=== PATIENT | female | born 1970 | race Caucasian/White ===

== ENCOUNTER 2016-03-31 18:14 | Emergency (ER) | payer OTHER ==
--- NOTE | 2016-03-31 18:47 | DIAGNOSTIC IMAGING REPORT ---
PROCEDURE: XR CHEST 2 VIEW INDICATION: COUGH TECHNIQUE: PA and lateral views. COMPARISON: None. FINDINGS: Lungs are clear. Heart and mediastinum are normal. Thorax is normal. IMPRESSION: 1. Negative chest.
--- NOTE | 2016-03-31 21:07 | ED CLINICAL REPORT ---
Clinical Report - Physicians/Mid Levels [facility] [address] [place] [address] 03/31/2016 18:15 Patient: MARY WILLARD Time Seen: 18:32 Mar 31 2016. Arrived- By private vehicle. Historian- patient. HISTORY OF PRESENT ILLNESS Chief Complaint: headache/ arthalgia. This started just prior to arrival and is still present. No weight loss, headache or muscle aches. Denies sleep problem. (For the last 2 weeks patient reports nausea, chills, arthralgias weakness, weight loss. Denies any foreign travel. Reports over the last day has had a posterior retro-orbital right-sided headache, which is common for her.). REVIEW OF SYSTEMS No fever, sore throat, sinus drainage, cough or difficulty breathing. No nausea, vomiting, diarrhea, chills or difficulty with urination. No skin rash or calf pain. All systems otherwise negative, except as recorded above. SOCIAL HISTORY Smoker- current status unknown. No alcohol use or drug use. ADDITIONAL NOTES The nursing notes have been reviewed. PHYSICAL EXAM Vital Signs: 03/31/2016 18:25 BP: 138/77. HR: 99. RR: 18. O2 saturation: 98%. Temp: 98.2 F. Appearance: Alert. ENT: Nose normal. Pharynx normal. Neck: Normal inspection. CVS: Normal heart rate and rhythm. Heart sounds normal. Rhythm normal. No extra heart sounds. Respiratory: No respiratory distress. Breath sounds normal. No decreased air movement. Abdomen: No visible injury. Soft. Bowel sounds normal. No abdominal tenderness. LABS, X-RAYS, AND EKG Chest X-ray: (IMPRESSION: 1. Negative chest. Electronically Final signed by:Mono Reddy MD 03/31/2016 6:42:57 PM). Laboratory Tests: UA-Culture if indicated: (IMELDA: 03/31/2016 20:40) ( MsgRcvd 03/31/2016 20:55) Final results Test Result Flag Units (Reference) URINE COLOR YELLOW URINE APPEARANCE CLEAR URINE GLUCOSE NEGATIVE (NEGATIVE) URINE BILIRUBIN NEGATIVE (NEGATIVE) URINE KETONE NEGATIVE (NEGATIVE) URINE SPECIFIC GRAVITY 1.010 (1.010-1.030) URINE PH 6.5 (5.0-8.0) URINE PROTEIN NEGATIVE (NEGATIVE) URINE UROBILINOGEN 0.2 EU/dL (0.2-1.0) URINE NITRITE NEGATIVE (NEGATIVE) URINE BLOOD NEGATIVE (NEGATIVE) URINE LEUK ESTERASE NEGATIVE (NEGATIVE) URINE RBC 0-1 rbc/hpf (0-1) URINE WBC 1-3 wbc/hpf (0-1) URINE EPITHELIAL CELLS 3-5 EPI/hpf (0-5) URINE BACTERIA TRACE (<1+) (NONE SEEN) URINE COMMENT CULT NOT INDICATED MUCUS 1+URINE CULTURES ARE SET-UP BASED ON THE FOLLOWING CRITERIA:POSITIVE NITRITEPOSITIVE LEUKOCYTE ESTERASEGREATER THAN 10 WHITE BLOOD CELLSMODERATE (2+) OR GREATER BACTERIA CBC w Diff: (IMELDA: 03/31/2016 19:00) ( [facility] 03/31/2016 19:21) Final results Test Result Flag Units (Reference) WHITE BLOOD COUNT 6.9 K/uL (4.5-11.5) RED BLOOD COUNT 4.27 M/uL (4.00-5.20) HEMOGLOBIN 13.2 gm/dL (12.0-16.0) HEMATOCRIT 40.1 % (36.0-46.0) MEAN CELL VOLUME 94 fL (80-100) MEAN CORPUSCULAR HGB 31 pg (26-34) MEAN CORPUSCULAR HGB CONC 33 g/dL (31-37) RED CELL DISTRIBUTION WIDTH 13.7 % (11.6-14.8) PLATELET COUNT 287 K/uL (150-400) NEUTROPHIL % 53.5 % (50-75) LYMPH % 37.6 % (25-40) MONO % 6.0 % (3-14) EOSINOPHIL % 1.7 % (0-4) BASOPHIL % 1.2 % (0-2) CMP: (IMELDA: 03/31/2016 19:00) ( [facility] 03/31/2016 19:46) Final results Test Result Flag Units (Reference) GLUCOSE 101 mg/dL (70-110) BUN 23 H mg/dL (7-18) CREATININE 0.9 mg/dL (0.6-1.3) Estimated GFR >60 mL/min Estimated GFR- >60 mL/min Note: Persistent reduction over 3 months in eGFR<60 mL/min/1.73 m2 defines CKD. Patients with eGFR values>=60 mL/min/1.73 m2 may also have CKD if evidence ofpersistent proteinuria. Additional information may be foundat www.kidney.org. SODIUM 142 mmol/L (136-145) POTASSIUM 3.7 mmol/L (3.5-5.1) CHLORIDE 103 mmol/L (98-107) CARBON DIOXIDE 25 mmol/L (21-32) CALCIUM 9.4 mg/dL (8.5-10.1) TOTAL PROTEIN 8.1 g/dL (6.4-8.2) ALBUMIN 4.3 g/dL (3.3-5.0) BILIRUBIN, TOTAL 0.3 mg/dL (0.0-1.0) ALKALINE PHOSPHATASE 87 U/L (46-116) AST (SGOT) 45 H U/L (15-37) ALT (SGPT) 78 U/L (12-78) . PROGRESS AND PROCEDURES Course of Care: patient here in the ER with her usual migraines, likely exacerbated by recent illness, likely influenza-like illness, harvest patient has had symptoms for 7-14 days, witha negative nonseptic workup here in the ER. Chest x-ray unremarkable in addition. Patient is stable, given IV hydration, IV Toradol, Vicodin prior to discharge, as well as IV Zofran 8 mg, as well as IV Benadryl. 03/31/2016 21:22 BP: 123/61. HR: 97. RR: 16. O2 saturation: 99%. Temp: 98.4 F. Pain level now: 05/29. Patient is stable. Symptoms better. Patient/family counseled. Differential Diagnosis: I considered sepsis, viral infection, flu syndrome, bacterial infection, Crohn's disease, lymphoma, drug fever, meningitis, peritonitis, intraabdominal abscess and viral gastroenteritis as a possible cause of fever in this patient. This is a partial list of diagnoses considered. Disposition: Discharged. CLINICAL IMPRESSION Acute, poorly controlled headache. Viral syndrome (Electronically signed by KorSharon reich P.A.-C 03/31/2016 21:37)
--- NOTE | 2016-03-31 21:07 | ED ORDER SUMMARY ---
..... Patient: MARY WILLARD OrderSheet [facility] VisitID: [id number] [address] [place] [address] 45y, F Registration Date/Time: 03/31/2016 ORDER SHEET Weight: 83.9 kg (stated) Allergies: D.H.E. 45, Doxycycline, Erythromycin, Penicillin, Phenergan, Reglan GENERAL ORDERS: Chest 2V Urgent (18:32 03/31/2016 EKoroleva P.A.-C) (Ack 18:33 LTapper) (18:48 MCampbell) CBC w Diff Urgent (18:32 03/31/2016 EKoroleva P.A.-C) (Ack 18:33 LTapper) (19:07 LWhalen R.N.) CMP Urgent (18:32 03/31/2016 EKoroleva P.A.-C) (Ack 18:33 LTapper) (19:07 LWhalen R.N.) UA-Culture if indicated Urgent (18:32 03/31/2016 EKoroleva P.A.-C) (Ack 18:33 LTapper) (20:53 AMcQuoid ER Tech1) MEDICATION ORDERS: Hydrocodone-APAP PO 5/325 mg (NOW, HIGH ALERT MEDICATION) (21:17 03/31/2016 EKoroleva P.A.-C) (21:21 HOShaughnessy R.N.) IV FLUIDS: IV NS : initial bolus 1000 mL (1000 mL/hr), then 1000 mL/hr for X1 (NOW); Eder (18:32 03/31/2016 EKoroleva P.A.-C) (19:07 LWhalen R.N.) Toradol IV 30 mg (NOW) (19:28 03/31/2016 EKoroleva P.A.-C) (19:36 HOShaughnessy R.N.) Benadryl IV 25 mg (NOW) (19:28 03/31/2016 EKoroleva P.A.-C) (19:36 HOShaughnessy R.N.) Zofran IV 8 mg (NOW) (19:28 03/31/2016 Naheed Vogt) (19:37 Maia Michele) Magnesium Sulfate IV 2 gm/50mL (NOW) (19:56 03/31/2016 Naheed Vogt) (20:06 Maia Michele) ORDER SHEET NOTES: [Electronically signed by Ruddy Prieto R.N. (21:24 03/31/2016)] [Electronically signed by Sharon Freeman P.A.-C (21:37 03/31/2016)] [Electronically locked/signed by Ruddy Prieto R.N. (21:24 03/31/2016)]
--- NOTE | 2016-03-31 21:07 | ED CLINICAL REPORT ---
Clinical Report - Physicians/Mid Levels [facility] [address] [place] [address] 03/31/2016 18:15 Patient: MARY WILLARD Time Seen: 18:32 Mar 31 2016. Arrived- By private vehicle. Historian- patient. HISTORY OF PRESENT ILLNESS Chief Complaint: headache/ arthalgia. This started just prior to arrival and is still present. No weight loss, headache or muscle aches. Denies sleep problem. (For the last 2 weeks patient reports nausea, chills, arthralgias weakness, weight loss. Denies any foreign travel. Reports over the last day has had a posterior retro-orbital right-sided headache, which is common for her.). REVIEW OF SYSTEMS No fever, sore throat, sinus drainage, cough or difficulty breathing. No nausea, vomiting, diarrhea, chills or difficulty with urination. No skin rash or calf pain. All systems otherwise negative, except as recorded above. SOCIAL HISTORY Smoker- current status unknown. No alcohol use or drug use. ADDITIONAL NOTES The nursing notes have been reviewed. PHYSICAL EXAM Vital Signs: 03/31/2016 18:25 BP: 138/77. HR: 99. RR: 18. O2 saturation: 98%. Temp: 98.2 F. Appearance: Alert. ENT: Nose normal. Pharynx normal. Neck: Normal inspection. CVS: Normal heart rate and rhythm. Heart sounds normal. Rhythm normal. No extra heart sounds. Respiratory: No respiratory distress. Breath sounds normal. No decreased air movement. Abdomen: No visible injury. Soft. Bowel sounds normal. No abdominal tenderness. LABS, X-RAYS, AND EKG Chest X-ray: (IMPRESSION: 1. Negative chest. Electronically Final signed by:Mono Reddy MD 03/31/2016 6:42:57 PM). Laboratory Tests: UA-Culture if indicated: (IMELDA: 03/31/2016 20:40) ( MsgRcvd 03/31/2016 20:55) Final results Test Result Flag Units (Reference) URINE COLOR YELLOW URINE APPEARANCE CLEAR URINE GLUCOSE NEGATIVE (NEGATIVE) URINE BILIRUBIN NEGATIVE (NEGATIVE) URINE KETONE NEGATIVE (NEGATIVE) URINE SPECIFIC GRAVITY 1.010 (1.010-1.030) URINE PH 6.5 (5.0-8.0) URINE PROTEIN NEGATIVE (NEGATIVE) URINE UROBILINOGEN 0.2 EU/dL (0.2-1.0) URINE NITRITE NEGATIVE (NEGATIVE) URINE BLOOD NEGATIVE (NEGATIVE) URINE LEUK ESTERASE NEGATIVE (NEGATIVE) URINE RBC 0-1 rbc/hpf (0-1) URINE WBC 1-3 wbc/hpf (0-1) URINE EPITHELIAL CELLS 3-5 EPI/hpf (0-5) URINE BACTERIA TRACE (<1+) (NONE SEEN) URINE COMMENT CULT NOT INDICATED MUCUS 1+URINE CULTURES ARE SET-UP BASED ON THE FOLLOWING CRITERIA:POSITIVE NITRITEPOSITIVE LEUKOCYTE ESTERASEGREATER THAN 10 WHITE BLOOD CELLSMODERATE (2+) OR GREATER BACTERIA CBC w Diff: (IMELDA: 03/31/2016 19:00) ( [facility] 03/31/2016 19:21) Final results Test Result Flag Units (Reference) WHITE BLOOD COUNT 6.9 K/uL (4.5-11.5) RED BLOOD COUNT 4.27 M/uL (4.00-5.20) HEMOGLOBIN 13.2 gm/dL (12.0-16.0) HEMATOCRIT 40.1 % (36.0-46.0) MEAN CELL VOLUME 94 fL (80-100) MEAN CORPUSCULAR HGB 31 pg (26-34) MEAN CORPUSCULAR HGB CONC 33 g/dL (31-37) RED CELL DISTRIBUTION WIDTH 13.7 % (11.6-14.8) PLATELET COUNT 287 K/uL (150-400) NEUTROPHIL % 53.5 % (50-75) LYMPH % 37.6 % (25-40) MONO % 6.0 % (3-14) EOSINOPHIL % 1.7 % (0-4) BASOPHIL % 1.2 % (0-2) CMP: (IMELDA: 03/31/2016 19:00) ( [facility] 03/31/2016 19:46) Final results Test Result Flag Units (Reference) GLUCOSE 101 mg/dL (70-110) BUN 23 H mg/dL (7-18) CREATININE 0.9 mg/dL (0.6-1.3) Estimated GFR >60 mL/min Estimated GFR- >60 mL/min Note: Persistent reduction over 3 months in eGFR<60 mL/min/1.73 m2 defines CKD. Patients with eGFR values>=60 mL/min/1.73 m2 may also have CKD if evidence ofpersistent proteinuria. Additional information may be foundat www.kidney.org. SODIUM 142 mmol/L (136-145) POTASSIUM 3.7 mmol/L (3.5-5.1) CHLORIDE 103 mmol/L (98-107) CARBON DIOXIDE 25 mmol/L (21-32) CALCIUM 9.4 mg/dL (8.5-10.1) TOTAL PROTEIN 8.1 g/dL (6.4-8.2) ALBUMIN 4.3 g/dL (3.3-5.0) BILIRUBIN, TOTAL 0.3 mg/dL (0.0-1.0) ALKALINE PHOSPHATASE 87 U/L (46-116) AST (SGOT) 45 H U/L (15-37) ALT (SGPT) 78 U/L (12-78) . PROGRESS AND PROCEDURES Course of Care: patient here in the ER with her usual migraines, likely exacerbated by recent illness, likely influenza-like illness, harvest patient has had symptoms for 7-14 days, witha negative nonseptic workup here in the ER. Chest x-ray unremarkable in addition. Patient is stable, given IV hydration, IV Toradol, Vicodin prior to discharge, as well as IV Zofran 8 mg, as well as IV Benadryl. 03/31/2016 21:22 BP: 123/61. HR: 97. RR: 16. O2 saturation: 99%. Temp: 98.4 F. Pain level now: 05/29. Patient is stable. Symptoms better. Patient/family counseled. Differential Diagnosis: I considered sepsis, viral infection, flu syndrome, bacterial infection, Crohn's disease, lymphoma, drug fever, meningitis, peritonitis, intraabdominal abscess and viral gastroenteritis as a possible cause of fever in this patient. This is a partial list of diagnoses considered. Disposition: Discharged. CLINICAL IMPRESSION Acute, poorly controlled headache. Viral syndrome (Electronically signed by KorSharon reich P.A.-C 03/31/2016 21:37)
--- NOTE | 2016-03-31 21:07 | ED NURSING NOTES ---
Clinical Report - [facility] [address] [place] [address] 03/31/2016 18:15 Patient: MARY WILLARD TRIAGE Triage time 18:25 Mar 31 2016. Acuity: LEVEL 3. Chief Complaint: HEADACHE and MIGRAINE HEADACHE. SABRINA COMA SCORE: Sabrina Coma Scale: 15- eyes open spontaneously (4); best verbal response- oriented x 4 (5); best motor response- obeys commands (6). --18:32 Enoch Chamorro R.N. 18:25 03/31/16. BP: 138/77. HR: 99. RR: 18. O2 saturation: 98%. Temp: 98.2 F. --18:32 Enoch Chamorro R.N. Weight: 83.9 kg stated. Height/Length: 66 inches Per Patient. BMI: 29.9. --18:31 Enoch Chamorro R.N. Medications BuPROPion HBr Oral. Omeprazole Oral. Sertraline HCl Oral. Strattera Oral. Tinidazole Oral. --18:27 Enoch Chamorro R.N. Allergies D.H.E. 45. Doxycycline. Erythromycin. Penicillin. Phenergan. Reglan. --18:27 Enoch Chamorro R.N. History Arrived by private vehicle. Historian: patient. Accompanied by friend. Primary physician (). This started two nights ago migranine started. ( Patient has not been feeling well for two weeks now with nausea, body aches, and chills.). She has had nausea and weakness. No vomiting, numbness, fever or sinus pain. Treatment LOCK FITTER: Took Tylenol and ibuprofen. PAST MEDICAL HX: Headaches. No history of diabetes mellitus or hypertension. No history of head injury. Immunizations: up-to-date. ( Years ago. Patient said in menopause no periods currently.). SOCIAL HX: Light tobacco smoker (cigarette)- less than 1/2 a pack per day. No alcohol use or drug use. No recent travel. No known contact with a sick individual. SELF HARM ASSESSMENT: A self harm assessment was performed. The patient answered "no" to the question "Have you recently felt down, depressed, or hopeless?" and "Do you have thoughts of harming or killing yourself?". FALL RISK ASSESSMENT: Fall risk assessment completed. No fall risk identified. NUTRITIONAL RISK ASSESSMENT: The nutritional risk assessment revealed no deficiencies. FUNCTIONAL ASSESSMENT: Functional assessment: no impairments noted. LEARNING NEEDS ASSESSMENT: The learning needs assessment revealed no barriers. ABUSE ASSESSMENT: Abuse assessment: (yes) The patient was asked "Do you feel safe in your home?". SKIN INTEGRITY ASSESSMENT: Skin integrity risk assessment completed. No skin integrity risk identified. --18:32 Enoch Chamorro R.N. PROBLEMS: Tension-Type Headache. Substance Abuse. Headache. Immunizations. LNMP - Last Normal Menstrual Period. Migraine Headache. Chronic Headache. --18:28 Enoch Chamorro R.N. ADDITIONAL SURGERIES: . Tubal Ligation. --18:28 Enoch Chamorro R.N. Interventions ID and allergy band on patient. --18:32 Enoch Chamorro R.N. PHYSICAL ASSESSMENT Ambulatory to room. GENERAL / NEURO / PSYCH: Alert. Oriented X 4. Appears in no acute distress. Appears in distress. Speech within normal limits. HEENT: No facial asymmetry noted. Photophobia present. Pupils equal, round and reactive to light. RESPIRATORY: Respirations not labored. Breath sounds within normal limits. CVS: Capillary refill less than 2 seconds. GI / : The patient has had nausea. Abdomen soft and nontender. ( Last BM yesterday and normal). SKIN: Skin is warm and dry. --18:33 Enoch Chamorro R.N. NURSING PROGRESS NOTES The plan of care for this patient has been created. Pulse oximeter and NIBP monitor placed on patient. Patient gowned. Head of bed elevated (45). Reassurance given. Lights dimmed. Call light placed in reach. Side rails up x 1. Bed placed in lowest position. Brakes of bed on. --18:33 Enoch Chamorro R.N. 19:07 03/31/2016 Site #1 started via IV in the left wrist with an 20g angiocath, with aseptic technique and good blood return; two attempts. Blood drawn: rainbow set. Labeled in the presence of the patient and sent to the lab. Saline lock flushed with 10 mL saline. --19: Enoch Chamorro R.N. 19:03/31/2016 Started bag #1 1000 mL IV Fluids IV NS (Saline); at 999 mL/hr over 1 hour(s) via site #1 via dial-a-flow. Allergies verified and confirmed 5 rights. IV patency established. IV site checked: no pain, redness, or swelling. IV flushed thoroughly pre- and post-medication administration. --19: Enoch Chamorro R.N. 19:27 03/31/16. BP: 124/60 taken on the left arm, via an automated monitor, while lying. HR: 92. RR: 16. O2 saturation: 100% on room air. Pain level now: 09/28. --19:28 Ruddy Prieto R.N. Reassurance given. Reassessment after fluids administered. She is calm. GENERAL / NEURO / PSYCH: Alert. Oriented X 4. HEENT: Pupils equal, round and reactive to light. RESPIRATORY: No respiratory distress. SKIN: Skin is warm and dry. Skin color within normal limits. --19:28 Ruddy Prieto R.N. 19:36 03/31/2016 Toradol IVP 30 mg given over 2 minute(s) via site #1. Allergies verified and confirmed 5 rights. IV patency established. IV site checked: no pain, redness, or swelling. IV flushed thoroughly pre- and post-medication administration. IVP given by RN. --19:36 Ruddy Prieto R.N. 19:36 03/31/2016 Benadryl (DiphenhydrAMINE HCl) IVP 25 mg given over 2 minute(s) via site #1. Allergies verified, confirmed 5 rights and sedative warning given to the patient. IV patency established. IV site checked: no pain, redness, or swelling. IV flushed thoroughly pre- and post-medication administration. IVP given by RN. --19:36 Ruddy Prieto R.N. 19:37 03/31/2016 Zofran (Ondansetron HCl) IVP 8 mg given over 2 minute(s) via site #1. Allergies verified and confirmed 5 rights. IV patency established. IV site checked: no pain, redness, or swelling. IV flushed thoroughly pre- and post-medication administration. IVP given by RN. --19:37 Ruddy Prieto R.N. 20:06 03/31/2016 Magnesium Sulfate (Magnesium Sulfate in D5W) IVP 2 gm given over 60 minute(s) via site #1. Allergies verified and confirmed 5 rights. IV patency established. IV site checked: no pain, redness, or swelling. IV flushed thoroughly pre- and post-medication administration. IVP given by RN. --20:06 Ruddy Prieto R.N. 20:37 03/31/16. BP: 125/65. HR: 98. RR: 16. O2 saturation: 100%. Temp: 98.2 F. --20:37 Ruddy Prieto R.N. Checked patient name and birthdate: patient confirmed. Instructions provided to collect clean catch urine and patient verbalized understanding. Clean catch urine collected. GENERAL / NEURO / PSYCH: Alert. Oriented X 4. HEENT: Pupils equal, round and reactive to light. RESPIRATORY: No respiratory distress. SKIN: Skin is warm and dry. Skin color within normal limits. --20:37 Ruddy Prieto R.N. 21:21 03/31/2016 Hydrocodone-APAP (Hydrocodone-Acetaminophen) PO 5/325 mg Tablets 1 tab given. Allergies verified, confirmed 5 rights and sedative warning given to the patient. --21:21 Ruddy Prieto R.N. DISPOSITION / DISCHARGE 21:22 03/31/2016 Site #1 removed upon discharge. Pressure dressing applied. --21:22 Ruddy Prieto R.N. 21:23 03/31/2016 IV Fluids IV NS Discontinued: bag #1 infused upon discharge. Total amount infused: 1000 mL. IV patency established. IV site checked: no pain, redness, or swelling. IV flushed thoroughly. --21:23 Ruddy Prieto R.N. Condition at departure: improved. The goals identified in the patient's plan of care were met. No learning barriers present. Discharge instructions provided and reviewed with the patient. Reviewed medication(s). Reviewed referral to a primary care physician. Reviewed clear liquid diet. The patient has no activity restrictions. The patient was discharged home and accompanied by ultimate hoops referee. She left the Emergency Department ambulatory and via private vehicle. House Cleaner Supervisor driving. FALL RISK ASSESSMENT: Fall risk assessment completed. No fall risk identified. --21:23 Ruddy Prieto R.N. 21:22 03/31/16. BP: 123/61. HR: 97. RR: 16. O2 saturation: 99%. Temp: 98.4 F (oral). Pain level now: 05/29. --21:23 Ruddy Prieto R.N. Departure time: 2122 PM. --21:24 Ruddy Prieto R.N. Locked/Released at 03/31/2016 21:24 by Ruddy Prieto R.N.
--- NOTE | 2016-03-31 21:07 | ED ORDER SUMMARY ---
..... Patient: MARY WILLARD OrderSheet [facility] VisitID: [id number] [address] [place] [address] 45y, F Registration Date/Time: 03/31/2016 ORDER SHEET Weight: 83.9 kg (stated) Allergies: D.H.E. 45, Doxycycline, Erythromycin, Penicillin, Phenergan, Reglan GENERAL ORDERS: Chest 2V Urgent (18:32 03/31/2016 EKoroleva P.A.-C) (Ack 18:33 LTapper) (18:48 MCampbell) CBC w Diff Urgent (18:32 03/31/2016 EKoroleva P.A.-C) (Ack 18:33 LTapper) (19:07 LWhalen R.N.) CMP Urgent (18:32 03/31/2016 EKoroleva P.A.-C) (Ack 18:33 LTapper) (19:07 LWhalen R.N.) UA-Culture if indicated Urgent (18:32 03/31/2016 EKoroleva P.A.-C) (Ack 18:33 LTapper) (20:53 AMcQuoid ER Tech1) MEDICATION ORDERS: Hydrocodone-APAP PO 5/325 mg (NOW, HIGH ALERT MEDICATION) (21:17 03/31/2016 EKoroleva P.A.-C) (21:21 HOShaughnessy R.N.) IV FLUIDS: IV NS : initial bolus 1000 mL (1000 mL/hr), then 1000 mL/hr for X1 (NOW); Eder (18:32 03/31/2016 EKoroleva P.A.-C) (19:07 LWhalen R.N.) Toradol IV 30 mg (NOW) (19:28 03/31/2016 EKoroleva P.A.-C) (19:36 HOShaughnessy R.N.) Benadryl IV 25 mg (NOW) (19:28 03/31/2016 EKoroleva P.A.-C) (19:36 HOShaughnessy R.N.) Zofran IV 8 mg (NOW) (19:28 03/31/2016 Naheed Vogt) (19:37 Maia Michele) Magnesium Sulfate IV 2 gm/50mL (NOW) (19:56 03/31/2016 Naheed Vogt) (20:06 Maia Michele) ORDER SHEET NOTES: [Electronically signed by Ruddy Prieto R.N. (21:24 03/31/2016)] [Electronically signed by Sharon Freeman P.A.-C (21:37 03/31/2016)] [Electronically locked/signed by Ruddy Prieto R.N. (21:24 03/31/2016)]
--- NOTE | 2016-03-31 21:37 | ED MAR SUMMARY ---
..... Medication Administration Record [facility] [address] [place] [address] Patient: MARY WILLARD Visit ID: [id number] 45y, F Weight: 83.9 kg Height/Length: 66 in BMI: 29.9 ALLERGIES: D.H.E. 45, Doxycycline, Erythromycin, Penicillin, Phenergan, Reglan Start 19:07 03/31/2016 Enoch Chamorro R.N., Stop 21:23 03/31/2016 Ruddy Prieto R.N. Medication Administered: IV NS (SALINE), Dose: IV Fluids over 1 hour(s), Rate: 999 mL/hr, Dispensed: 1000 mL bag, Site: #1 left wrist. Medication Ordered: IV NS : initial bolus 1000 mL (1000 mL/hr), then 1000 mL/hr for X1 (NOW); Eder. Given 19:36 03/31/2016 Ruddy Prieto R.N. Medication Administered: TORADOL [IVP], Dose: 30 mg IVP over 2 minute(s), Site: #1 left wrist. Medication Ordered: Toradol IV 30 mg (NOW). Given 19:36 03/31/2016 Ruddy Prieto R.N. Medication Administered: BENADRYL [IVP] (DIPHENHYDRAMINE HCL), Dose: 25 mg IVP over 2 minute(s), Site: #1 left wrist. Medication Ordered: Benadryl IV 25 mg (NOW). Given 19:37 03/31/2016 Ruddy Prieto R.N. Medication Administered: ZOFRAN [IVP] (ONDANSETRON HCL), Dose: 8 mg IVP over 2 minute(s), Site: #1 left wrist. Medication Ordered: Zofran IV 8 mg (NOW). Given 20:06 03/31/2016 Ruddy Prieto R.N. Medication Administered: MAGNESIUM SULFATE [IVP] (MAGNESIUM SULFATE IN D5W), Dose: 2 gm IVP over 60 minute(s), Site: #1 left wrist. Medication Ordered: Magnesium Sulfate IV 2 gm/50mL (NOW). Given 21:03/31/2016 Ruddy Prieto R.N. Medication Administered: HYDROCODONE-APAP [PO] (HYDROCODONE-ACETAMINOPHEN), Dose: 1 tab 5/325 mg Tablets PO. Medication Ordered: Hydrocodone-APAP PO 5/325 mg (NOW, HIGH ALERT MEDICATION).
--- NOTE | 2016-03-31 21:37 | ED DISCHARGE INSTRUCTIONS ---
Patient: MARY WILLARD General Instructions [facility] VisitID: [id number] [address] [place] [address] 45y, F Registration Date/Time: 03/31/2016 Acute, poorly controlled headache. Viral syndrome ADDITIONAL INFORMATION Migraine Headache Migraine headaches are related to changes in blood flow to the brain. This causes throbbing or constant pain on one or both sides of the head. The pain may last from a few hours to several days. There is usually nausea, vomiting, sensitivity to light and sound, and blurred vision. A migraine attack may be triggered by emotional stress, hormone changes during the menstrual cycle, oral contraceptives, alcohol use, certain foods containing tyramine, eye strain, weather changes, missing meals, or too little or too much sleep. Home Care For This Headache: 1) If you were given pain medicine for this headache, do not drive yourself home . Arrange for a ride, instead. When you get home, try to sleep. You should feel much better when you wake up. 2) Migraine headaches may improve with an ice pack on the forehead or at the base of the skull. Heat to the back of your neck may relieve any neck spasm. 3) Drink only clear liquids or eat a very light diet to avoid nausea/vomiting until symptoms improve. Preventing Future Headaches: 1) Pay attention to those factors that seem to trigger your headache. Try to avoid them when you can. If you have frequent headaches, it is useful to keep a diary of what you were doing, feeling or eating in the hours before each attack. Show this to your doctor to help find the cause of your headaches. a) If you feel that stress is a factor in your headaches, look at the sources of stress in your life. Find ways to release the build-up of those stresses by using regular exercise, relaxation methods (yoga, meditation), bio-feedback or simply taking time-out for yourself. For more information about this, consult your doctor or go to a local bookstore and review books and tapes on this subject. b) Tyramine is a substance present in the following foods : chocolate, yogurt, all cheeses except cottage cheese and cream cheese. smoked or pickled fish and meat (including cottrell, caviar, bologna, pepperoni, salami), liver, avocados, bananas, figs, raisins, and red wine. Be aware that these foods may trigger a migraine in some persons. Try taking these foods out of your diet for 1-2 months to see if this reduces headache frequency. Treating Future Attacks: 1) At the first sign of a headache, take time out if possible. Find a quiet, dark, comfortable place to sit or lie down. Let yourself relax or sleep. 2) An ice pack on the forehead or area of greatest pain may help. If you are having muscle spasm and tightness of the neck, a heating pad and massage to this area may be helpful. 3) If you have been prescribed a medicine to stop a migraine headache, use this at the very first warning sign of the headache (aura or initial pain) for best results. Follow Up with your doctor if the headache is not better within the next 24 hours. If you have frequent headaches you should discuss a treatment plan with your primary care doctor. Ask if you can have medicine to take at home the next time you get a bad headache. Poorly controlled chronic headaches may require a referral to a neurologist (headache specialist). Get Prompt Medical Attention if any of the following occur: Your head pain gets worse, or does not improve within 24 hours Repeated vomiting (cant keep liquids down) Sinus or ear or throat pain (not already reported) Fever of 100.4 F (38 C) or higher, or as directed by your healthcare provider Stiff neck Extreme drowsiness, confusion or fainting Dizziness, vertigo (dizziness with spinning sensation) Weakness of an arm or leg or one side of the face Difficulty with speech or vision Headache [Unspecified] The cause of your headache today is not clear, but it does not appear to be the sign of any serious illness. Under stress, some people tense the muscles of their shoulder, neck and scalp without knowing it. If this condition lasts long enough, a TENSION HEADACHE can occur. A MIGRAINE HEADACHE is caused by changes in blood flow to the brain. A migraine attack may be triggered by emotional stress, hormone changes during the menstrual cycle, oral contraceptives, alcohol use, certain foods containing tyramine, eye strain, weather changes, missing meals, lack of sleep or oversleeping. Other causes of headache include a viral illness with high fever, head injury with concussion, sinus, ear or throat infection, dental pain and TMJ (jaw joint) pain. More serious but less common causes of headache include stroke, brain hemorrhage, brain tumor, meningitis and encephalitis. Home Care: If you were given pain medicine for this headache, do not drive yourself home. Arrange for a ride, instead. When you get home, try to sleep. You should feel much better when you wake up. Apply heat to the back of your neck to relieve neck muscle spasm. Migraine headaches may respond best to an ice pack on the forehead or at the base of the skull. If you are having nausea or vomiting, follow a light diet until your headache is relieved. If you have a migraine type headache, use sunglasses when in the daylight or around bright indoor lighting until symptoms improve. Bright glaring light can worsen this kind of headache. Follow Up with your doctor if the headache is not better within the next 24 hours. If you have frequent headaches you should discuss a treatment plan with your primary care doctor. By being aware of the earliest signs of headache, and starting treatment right away, you may be able to stop the pain yourself. Get Prompt Medical Attention if any of the following occur: Worsening of your head pain or no improvement within 24 hours Repeated vomiting (unable to keep liquids down) Fever of 100.4F (38C) or higher, or as directed by your healthcare provider Stiff neck Extreme drowsiness, confusion or fainting Dizziness, vertigo (dizziness with spinning sensation) Weakness of an arm or leg or one side of the face Difficulty with speech or vision Viral Syndrome (Adult) A viral illness may cause a number of symptoms. The symptoms depend on the part of the body that the virus affects. If it settles in the nose, throat, and lungs, it may cause cough, sore throat, congestion, and sometimes headache. If it settles in the stomach and intestinal tract, it may cause vomiting and diarrhea. Sometimes it causes vague symptoms like "aching all over," feeling tired, loss of appetite, or fever. A viral illness usually lasts1 to 2 weeks, but sometimes it lasts longer. In some cases, a more serious infection can look like a viral syndrome in the first few days of the illness. You may need anotherexam and additional teststo know the difference.Watch for the warning signs listed below. Home care Follow these guidelines for taking care of yourself at home: If symptoms are severe, rest at home for the first 2 to 3 days. Stay away from cigarette smoke - both your smoke and the smoke from others. You may useacetaminophen or ibuprofen for fever, muscle aching, and headache, unless another medicine was prescribed for this.If you have chronic liver or kidney disease or ever had a stomach ulcer or GI bleeding, talk with your doctor before using these medicinesNo one who is younger than 18 and ill with a fever should take aspirin. It may cause severe liver damage. Your appetite may be poor, so a light diet is fine. Avoid dehydration by drinking 8 to 12 8-ounce glasses of fluids each day. This may include water; orange juice; lemonade; apple, grape, and cranberry juice; clear fruit drinks; electrolyte replacement and sports drinks; and decaffeinated teas and coffee. If you have been diagnosed with a kidney disease, ask your doctor how much and what types of fluids you should drink to prevent dehydration. If you have kidney disease, drinking too much fluid can cause it build up in the your body and be dangerous to your health. Jeey-mzq-krpnwai remedies won't shorten the length of the illness but may be helpful forcough, sore throat; and nasal and sinus congestion. Don't use decongestants if you have high blood pressure. Follow-up care Follow up with your health care provider if you do not improve over the next week. When to seek medical care Get prompt medical attention if any of these occur: Cough with lots of colored sputum (mucus) or blood in your sputum Chest pain, shortness of breath, wheezing, or difficulty breathing Severe headache; face, neck, or ear pain Severe, constant pain in the lower right side of your belly (abdominal) Continued vomiting (cant keep liquids down) Frequent diarrhea (more than 5 times a day); blood (red or black color) or mucus in diarrhea Feeling weak, dizzy, or like you are going to faint Extreme thirst Fever of 100.4 F (38 C) oral or higher, not better with fever medication Convulsion You have been given the following additional information: Headache, Migraine (Classical) Headache, Unspecified Viral Syndrome (Adult) (Electronically signed by Sharon Freeman P.A.-C 03/31/2016 21:37)
--- NOTE | 2016-03-31 21:37 | ED MAR SUMMARY ---
..... Medication Administration Record Located Within [facility] [address] [facility] [place] [address] Patient: MARY WILLARD Visit ID: [id number] 45y, F Weight: 83.9 kg Height/Length: 66 in BMI: 29.9 ALLERGIES: D.H.E. 45, Doxycycline, Erythromycin, Penicillin, Phenergan, Reglan Start 19:07 03/31/2016 Enoch Chamorro R.N., Stop 21:23 03/31/2016 Ruddy Prieto R.N. Medication Administered: IV NS (SALINE), Dose: IV Fluids over 1 hour(s), Rate: 999 mL/hr, Dispensed: 1000 mL bag, Site: #1 left wrist. Medication Ordered: IV NS : initial bolus 1000 mL (1000 mL/hr), then 1000 mL/hr for X1 (NOW); Eder. Given 19:36 03/31/2016 Ruddy Prieto R.N. Medication Administered: TORADOL [IVP], Dose: 30 mg IVP over 2 minute(s), Site: #1 left wrist. Medication Ordered: Toradol IV 30 mg (NOW). Given 19:36 03/31/2016 Ruddy Prieto R.N. Medication Administered: BENADRYL [IVP] (DIPHENHYDRAMINE HCL), Dose: 25 mg IVP over 2 minute(s), Site: #1 left wrist. Medication Ordered: Benadryl IV 25 mg (NOW). Given 19:37 03/31/2016 Ruddy Prieto R.N. Medication Administered: ZOFRAN [IVP] (ONDANSETRON HCL), Dose: 8 mg IVP over 2 minute(s), Site: #1 left wrist. Medication Ordered: Zofran IV 8 mg (NOW). Given 20:06 03/31/2016 Ruddy Prieto R.N. Medication Administered: MAGNESIUM SULFATE [IVP] (MAGNESIUM SULFATE IN D5W), Dose: 2 gm IVP over 60 minute(s), Site: #1 left wrist. Medication Ordered: Magnesium Sulfate IV 2 gm/50mL (NOW). Given 21:03/31/2016 Ruddy Prieto R.N. Medication Administered: HYDROCODONE-APAP [PO] (HYDROCODONE-ACETAMINOPHEN), Dose: 1 tab 5/325 mg Tablets PO. Medication Ordered: Hydrocodone-APAP PO 5/325 mg (NOW, HIGH ALERT MEDICATION).
--- NOTE | 2016-03-31 21:37 | ED MED RECONCILIATION SUMMARY ---
Patient: MARY WILLARD Medication Reconciliation Report [facility] VisitID: [id number] [address] [place] [address] 45y, F Registration Date/Time: 03/31/2016 Weight: 83.9 kg Height/Length: 66 in. BMI: 29.9 ALLERGIES: D.H.E. 45, Doxycycline, Erythromycin, Penicillin, Phenergan, Reglan The patient's Home Medications are listed below: THE FOLLOWING MEDICATIONS NEED TO BE RECONCILED: BuPROPion HBr Oral Omeprazole Oral Sertraline HCl Oral Strattera Oral Tinidazole Oral The source(s) of the original Home Medication information: Not obtained. The following Medications were given to the patient in the Emergency Department: IV NS IV Fluids bolus 0, then 999 mL/hr, administered: 03/31/2016 7:07:00 PM Toradol [IVP] IVP 30 mg, administered: 03/31/2016 7:36:00 PM Benadryl [IVP] IVP 25 mg, administered: 03/31/2016 7:36:00 PM Zofran [IVP] IVP 8 mg, administered: 03/31/2016 7:37:00 PM Magnesium Sulfate [IVP] IVP 2 gm, administered: 03/31/2016 8:06:00 PM Hydrocodone-APAP [PO] PO 1 tab, administered: 03/31/2016 9:21:00 PM The following Medications were prescribed to the patient: None.
--- NOTE | 2016-03-31 21:37 | ED MED RECONCILIATION SUMMARY ---
Patient: MARY WILLARD Medication Reconciliation Report [facility] VisitID: [id number] [address] [place] [address] 45y, F Registration Date/Time: 03/31/2016 Weight: 83.9 kg Height/Length: 66 in. BMI: 29.9 ALLERGIES: D.H.E. 45, Doxycycline, Erythromycin, Penicillin, Phenergan, Reglan The patient's Home Medications are listed below: THE FOLLOWING MEDICATIONS NEED TO BE RECONCILED: BuPROPion HBr Oral Omeprazole Oral Sertraline HCl Oral Strattera Oral Tinidazole Oral The source(s) of the original Home Medication information: Not obtained. The following Medications were given to the patient in the Emergency Department: IV NS IV Fluids bolus 0, then 999 mL/hr, administered: 03/31/2016 7:07:00 PM Toradol [IVP] IVP 30 mg, administered: 03/31/2016 7:36:00 PM Benadryl [IVP] IVP 25 mg, administered: 03/31/2016 7:36:00 PM Zofran [IVP] IVP 8 mg, administered: 03/31/2016 7:37:00 PM Magnesium Sulfate [IVP] IVP 2 gm, administered: 03/31/2016 8:06:00 PM Hydrocodone-APAP [PO] PO 1 tab, administered: 03/31/2016 9:21:00 PM The following Medications were prescribed to the patient: None.
== END 2016-03-31 21:24 | disposition home or self-care (01) ==
LOC: ED SRH 18:14
DX: B34.9 Viral infection, unspecified (principal); R51 Headache; F17.210 Nicotine dependence, cigarettes, uncomplicated; Z88.1 Allergy status to other antibiotic agents; Z88.8 Allergy status to other drugs, medicaments and biological substances; Z88.0 Allergy status to penicillin
CPT/HCPCS: 90004; 90100; 95059

== ENCOUNTER 2016-06-25 18:30 | Emergency (ER) | payer OTHER ==
--- NOTE | 2016-06-25 21:25 | ED ORDER SUMMARY ---
..... Patient: MARY WILLARD OrderSheet VisitID: [id number] [address] [place] [address] 45y, F Registration Date/Time: 06/25/2016 ORDER SHEET Weight: 83.9 kg (stated) Allergies: D.H.E. 45, Doxycycline, Erythromycin, Penicillin, Phenergan, Reglan GENERAL ORDERS: MEDICATION ORDERS: IV FLUIDS: Dilaudid IV 1 mg (HIGH ALERT MEDICATION, NOW) (19:13 06/25/2016 Darin Jane) (Ack 19:15 HSoule) (19:42 HSoule) Benadryl IV 25 mg (NOW) (19:06/25/2016 Darin Jane) (Ack 19:15 HSoule) (19:42 HSoule) Zofran IV 4 mg (NOW) (19:06/25/2016 Darin Jane) (Ack 19:15 HSoule) (19:43 HSoule) Decadron IV 10 mg (NOW) (19:14 06/25/2016 Darin Jane) (Ack 19:15 HSoule) (19:43 HSoule) IV NS : initial bolus 1000 mL (1000 mL/hr), then none - for X1 (NOW) (19:14 06/25/2016 Darin Jane) (Ack 19:15 HSoule) (19:43 HSoule) Toradol IV 30 mg (NOW) (20:39 06/25/2016 Darin Jane) (Ack 21:01 JDeElena R.N.) (Ack 21:03 HSoule) (21:04 JDeElena R.N.) Dilaudid IV 1 mg (HIGH ALERT MEDICATION, NOW) (20:39 06/25/2016 Darin Jane) (Ack 21:01 JDeElena R.N.) (Ack 21:03 HSoule) (21:04 JDeElena R.N.) ORDER SHEET NOTES: [Electronically signed by Coni Gardner (00:51 06/26/2016)] [Electronically signed by Hugo Dubose Dr. (12:14 06/27/2016)] [Electronically locked/signed by Coni Gardner (00:51 06/26/2016)]
--- NOTE | 2016-06-25 21:25 | ED ORDER SUMMARY ---
..... Patient: MARY WILLARD OrderSheet [facility] VisitID: [id number] [address] [place] [address] 45y, F Registration Date/Time: 06/25/2016 ORDER SHEET Weight: 83.9 kg (stated) Allergies: D.H.E. 45, Doxycycline, Erythromycin, Penicillin, Phenergan, Reglan GENERAL ORDERS: MEDICATION ORDERS: IV FLUIDS: Dilaudid IV 1 mg (HIGH ALERT MEDICATION, NOW) (19:13 06/25/2016 Darin Jane) (Ack 19:15 HSoule) (19:42 HSoule) Benadryl IV 25 mg (NOW) (19:06/25/2016 Darin Jane) (Ack 19:15 HSoule) (19:42 HSoule) Zofran IV 4 mg (NOW) (19:06/25/2016 Darin Jane) (Ack 19:15 HSoule) (19:43 HSoule) Decadron IV 10 mg (NOW) (19:14 06/25/2016 Darin Jane) (Ack 19:15 HSoule) (19:43 HSoule) IV NS : initial bolus 1000 mL (1000 mL/hr), then none - for X1 (NOW) (19:14 06/25/2016 Darin Jane) (Ack 19:15 HSoule) (19:43 HSoule) Toradol IV 30 mg (NOW) (20:39 06/25/2016 Darin Jane) (Ack 21:01 JDeElena R.N.) (Ack 21:03 HSoule) (21:04 JDeElena R.N.) Dilaudid IV 1 mg (HIGH ALERT MEDICATION, NOW) (20:39 06/25/2016 Darin Jane) (Ack 21:01 JDeElena R.N.) (Ack 21:03 HSoule) (21:04 JDeElena R.N.) ORDER SHEET NOTES: [Electronically signed by Coni Gardner (00:51 06/26/2016)] [Electronically signed by Hugo Dubose Dr. (12:14 06/27/2016)] [Electronically locked/signed by Coni Gardner (00:51 06/26/2016)]
--- NOTE | 2016-06-25 21:25 | ED CLINICAL REPORT ---
Clinical Report - Physicians/Mid Levels [facility] [address] [place] [address] 06/25/2016 18:31 Patient: MARY WILLARD Time Seen: 190; initial patient contact. Arrived- By private vehicle. Historian- patient. HISTORY OF PRESENT ILLNESS Is still present and worsening. Chief Complaint: HEADACHE. This started yesterday. It was gradual in onset and has been constant but is not gone now. Patient was last known well (yesterday). Onset during rest. It is described as similar to previous headaches. Located in the left temporal region. No neck pain. Not located in the facial region. At its maximum, severity described as severe. When seen in the E.D., severity described as severe. Modifying factors: worsened by bright light and noise; (improved with IV medications). The patient has had photophobia and nausea. No preceding symptoms, blurred vision or weakness. No recent travel. Similar symptoms previously: Many times. Recent medical care: Not recently seen/assessed. REVIEW OF SYSTEMS No fever, chest pain, difficulty breathing or skin rash. All systems otherwise negative, except as recorded above. PAST HISTORY See nurses notes. Medications: TiZANidine HCl Oral 4 mg, daily. Montelukast Sodium Oral 10 mg, daily. Prevacid Oral, daily. BuPROPion HCl Oral 150 mg, 2x a day. Strattera Oral 80mg, daily. Sertraline HCl Oral 200mg, daily. Ibuprofen Oral, as needed. Tylenol Oral, as needed. Allergies: D.H.E. 45. Doxycycline. Erythromycin. Penicillin. Phenergan. Reglan. SOCIAL HISTORY Smoker- current status unknown. Occasional alcohol use. No drug use. No recent travel. Is a local resident. ADDITIONAL NOTES The nursing notes have been reviewed. PHYSICAL EXAM Vital Signs: 06/25/2016 18:41 BP: 139/90. HR: 102. RR: 16. O2 saturation: 98%. Temp: 98.2 F. Blood pressure normal. Oxygen saturation normal. Appearance: Alert. No acute distress. Eyes: Pupils equal, round and reactive to light. Eyes normal inspection. (no papilledema. Normal appearing retinal vasculature.). ENT: Ears normal. Nose normal. Pharynx normal. Neck: Normal inspection. Neck supple. No meningeal signs. CVS: Normal heart rate and rhythm. Heart sounds normal. Pulses normal. Respiratory: No respiratory distress. Breath sounds normal. Abdomen: Soft and nontender. No organomegaly. Skin: Skin warm and dry. Normal skin color. No rash. Normal skin turgor. Extremities: Extremities exhibit normal ROM. No lower extremity edema. Neuro: Oriented X 3. Alert. Mood/affect normal. Speech normal. Cranial nerves normal (as tested). No cerebellar findings. No motor deficit. No sensory deficit. Reflexes normal. PROGRESS AND PROCEDURES Course of Care: Patient is a pleasant 45-year-old female presenting for evaluation of headache. Patient as been evaluated for SAH, increased ICP, meningitis, and space occupying lesion. Patients exam and history are not consistent with these entities. Patient is agreeable to treatment for headache. Medications have been ordered after reviewing allergies and intolerances. Patient will be reevaluated after the medications have been given. patient with some allergies making it somewhat difficult to treat her migraine headache appropriately. Patient also states that in the migraine Cocktail she receives she normally gets magnesium sulfate as well as Dilaudid. I expressed my concern with these treatments and them being atypical. Recommended trial of medications withoutmagnesium sulfate or Dilaudid. Patient is agreeable to the oregoing of magnesium however insisted on Dilaudid. Medications and ordered. We'll reevaluate. Patient was reevaluated and found to be significantly improved after second dose of medications.. Patient reports being able to return home and follow up with doctor. Repeat examination continues to be benign. I discussed with the patient workup, diagnosis, home care, follow-up, and return precautions. All questions have been answered. The patient expressed understanding of these instructions and was agreeable to them. Do not feel patient needs to be admitted to the hospital or require further ED workup/evaluation. Disposition: Discharged. Condition: good. CLINICAL IMPRESSION 06/25/2016 21:05 BP: 142/88. HR: 94. RR: 16. O2 saturation: 97%. 06/25/2016 20:03 BP: 127/70. HR: 89. RR: 20. O2 saturation: 100%. Pain level now: 07/29. 06/25/2016 18:41 BP: 139/90. HR: 102. RR: 16. O2 saturation: 98%. Temp: 98.2 F. Acute headache (left temporal). Blood pressure normal. Oxygen saturation normal. INSTRUCTIONS Warnings: SEDATIVE MEDICATION: You were given sedative medication during your visit. Do not drive or operate dangerous machinery. GENERAL WARNINGS: Return or contact your physician immediately if your condition worsens or changes unexpectedly, if not improving as expected, or if other problems arise. SPECIFICALLY, return if you develop fever, vomiting, numbness, weakness, difficulty thinking, visual disturbances, fainting or extreme fatigue. Your Current Medications: CONTINUE TAKING THE FOLLOWING MEDICATIONS: BuPROPion HCl Oral : 150 mg 2x a day. Ibuprofen Oral : prn. Montelukast Sodium Oral : 10 mg daily. Prevacid Oral : daily. Sertraline HCl Oral : 200mg daily. Strattera Oral : 80mg daily. TiZANidine HCl Oral : 4 mg daily. Tylenol Oral : prn. Follow-up: Return to the emergency department as needed. Follow up with your doctor in three days. Reason for referral: recheck today's concerns. Summary of care provided to patient via paper. Screening today revealed the patient's blood pressure to be in the normal range. The patient should follow up with a primary care provider for blood pressure management. Understanding of the discharge instructions verbalized by patient. (Electronically signed by Hugo Dubose Dr. 06/27/2016 12:14)
--- NOTE | 2016-06-25 21:25 | ED NURSING NOTES ---
Clinical Report - Nurses [facility] [address] [place] [address] 06/25/2016 18:31 Patient: MARY WILLARD TRIAGE Triage time 18:41. Acuity: LEVEL 3. Chief Complaint: MIGRAINE HEADACHE. Alert. No acute distress. SEPSIS SCREEN: Sepsis Screen. Negative (no infection suspected/documented). SABRINA COMA SCORE: Sabrina Coma Scale: 15- eyes open spontaneously (4); best verbal response- oriented x 4 (5); best motor response- obeys commands (6). --18:46 Sharon Stephens R.N. 18:41 06/25/16. BP: 139/90. HR: 102. RR: 16. O2 saturation: 98%. Temp: 98.2 F. Pain level now 7/10. --18:46 Sharon Stephens R.N. Weight: 83.9 kg stated. Height/Length: 66 inches Per Patient. BMI: 29.9. --18:42 Sharon Stephens R.N. Medications Tylenol Oral, as needed. --18:44 Sharon Stephens R.N. Ibuprofen Oral, as needed. --18:44 Sahron Stephens R.N. Sertraline HCl Oral 200mg, daily. --18:44 Sharon Stephens R.N. Strattera Oral 80mg, daily. --18:44 Sharon Stephens R.N. BuPROPion HCl Oral 150 mg, 2x a day. --18:44 Sharon Stephens R.N. Prevacid Oral, daily. --18:45 Sharon Stephens R.N. Montelukast Sodium Oral 10 mg, daily. --18:45 Sharon Stephens R.N. TiZANidine HCl Oral 4 mg, daily. --18:45 Sharon Stephens R.N. Allergies D.H.E. 45. Doxycycline. Erythromycin. Penicillin. Phenergan. Reglan. --18:46 Sharon Stephens R.N. History Arrived by private vehicle. Historian: patient. Unaccompanied. Primary physician (Hayley Brown). This started yesterday. 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 PAST MEDICAL HX: Immunizations: up-to-date. The patient is post-menopausal. SOCIAL HX: Light tobacco smoker (cigarette)- less than 1/2 a pack per day. Occasional alcohol use. No drug use. No recent travel. No infectious disease exposure. No known contact with a sick individual. ABUSE ASSESSMENT: Abuse assessment: The patient was asked "Do you feel safe in your home?" and "Has anyone hurt you or threatened to hurt you?". No report of abuse. NUTRITIONAL RISK ASSESSMENT: The nutritional risk assessment revealed no deficiencies. FUNCTIONAL ASSESSMENT: Functional assessment: no impairments noted. LEARNING NEEDS ASSESSMENT: The learning needs assessment revealed no barriers. --18:46 Sharon Stephens R.N. PROBLEMS: Viral Disease. Tension-Type Headache. Substance Abuse. Headache. Migraine Headache. Chronic Headache. --18:46 Sharon Stephens R.N. ADDITIONAL SURGERIES: . Tubal Ligation. --18:46 Sharon Stephens R.N. Interventions ID band on patient. Ambulatory. --18:46 Sharon Stephens R.N. PHYSICAL ASSESSMENT Ambulatory to room. GENERAL / NEURO / PSYCH: Alert. Oriented X 4. Appears in no acute distress. Speech within normal limits. HEENT: No facial asymmetry noted. RESPIRATORY: Respirations not labored. CVS: Capillary refill less than 2 seconds. SKIN: Skin is warm and dry. --18:46 Sharon Stephens R.N. NURSING PROGRESS NOTES Head of bed elevated. Lights dimmed. Two patient identifiers checked. Call light placed in reach. Side rails up x 2. Bed placed in lowest position. Brakes of bed on. Patient ready for evaluation- chart flagged. --18:46 Sharon Stephens R.N. Care transferred and report given (to Coni Song RN). --19:10 Sharon Stephens R.N. 19:27 06/25/2016 Site #1 started via IV in the right wrist with an 20g angiocath, with aseptic technique and good blood return; one attempt. Blood drawn: rainbow set. Labeled in the presence of the patient and held. Saline lock flushed with 10 mL saline. --19:42 Coni Gardner 06/25/2016 Dilaudid (HYDROmorphone HCl PF) IVP 1 mg given over 1 minute(s) via site #1. Allergies verified, confirmed 5 rights and sedative warning given to the patient. IV patency established. IV site checked: no pain, redness, or swelling. IV flushed thoroughly pre- and post-medication administration. IVP given by RN. --19:42 Coni Gardner 19:06/25/2016 Benadryl (DiphenhydrAMINE HCl) IVP 25 mg given over 2 minute(s) via site #1. Allergies verified, confirmed 5 rights and sedative warning given to the patient. IV patency established. IV site checked: no pain, redness, or swelling. IV flushed thoroughly pre- and post-medication administration. IVP given by RN. --:42 Coni Gardner 06/25/2016 Started bag #1 1000 mL IV Fluids IV NS (Saline); at 1000 mL/hr over 1 hour(s) via site #1. Allergies verified and confirmed 5 rights. IV patency established. IV site checked: no pain, redness, or swelling. IV flushed thoroughly pre- and post-medication administration. --19:43 Coni Gardner :06/25/2016 Decadron IVP 10 mg given over 2 minute(s) via site #1. Allergies verified and confirmed 5 rights. IV patency established. IV site checked: no pain, redness, or swelling. IV flushed thoroughly pre- and post-medication administration. IVP given by RN. --19:43 Coni Gardner 19:06/25/2016 Zofran (Ondansetron HCl) IVP 4 mg given over 2 minute(s) via site #1. Allergies verified and confirmed 5 rights. IV patency established. IV site checked: no pain, redness, or swelling. IV flushed thoroughly pre- and post-medication administration. IVP given by RN. --19:43 Coni Gardner 20:03 06/25/16. BP: 127/70. HR: 89. RR: 20. O2 saturation: 100% on room air. Pain level now: 07/29. --20:03 Coni Gardner Reassessment after medication administered. Overall patient status- she states feels the same. --20:03 Robe Gardnernah 20:30 06/25/2016 IV Fluids IV NS Discontinued: bag #1 completed. Total amount infused: 1000 mL. IV patency established. IV site checked: no pain, redness, or swelling. IV flushed thoroughly. --00:41 Robe Gardnernah 21:04 06/25/2016 Toradol IVP 30 mg given over 2 minute(s) via site #1. Allergies verified and confirmed 5 rights. IV patency established. IV site checked: no pain, redness, or swelling. IV flushed thoroughly pre- and post-medication administration. IVP given by RN. --21: Grant Solorio R.N. 21:06/25/2016 Dilaudid (HYDROmorphone HCl PF) IVP 1 mg given over 2 minute(s) via site #1. Allergies verified, confirmed 5 rights and sedative warning given to the patient. IV patency established. IV site checked: no pain, redness, or swelling. IV flushed thoroughly pre- and post-medication administration. IVP given by RN. --21:05 Grant Solorio R.N. The patient is calm and resting quietly. --21:05 Grant Solorio R.N. 21:06/25/16. BP: 142/88 (regular adult cuff) taken on the left arm, via an automated monitor, while lying. HR: 94 (normal rate). RR: 16 (regular, unlabored and normal). O2 saturation: 97% on room air. --21:05 Grant Solorio R.N. DISPOSITION / DISCHARGE 21:30 06/25/16. Condition at departure: stable. The goals identified in the patient's plan of care were met. No learning barriers present. Discharge instructions provided and reviewed with the patient. Reviewed need for increased fluid intake. Patient verbalized understanding. Written instructions provided in Niuean. ( Follow up with your PCP in three days. Increase fluids and rest until you feel better. Return if symptoms worsen. Patient verbalized understanding and had no additional questions at this time). The patient was discharged by the physician. 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 She left the Emergency Department ambulatory and via private vehicle. Freight Elevator Operator driving. FALL RISK ASSESSMENT: Fall risk assessment completed. No fall risk identified. --00:40 Coni Gardner 21:30 06/25/16. BP: 130/70. HR: 90. RR: 20. O2 saturation: 98% on room air. Temp: 97.7 F (oral). Pain level now: 04/28. --00:40 Coni Gardner 21:30 06/25/2016 Site #1 removed upon discharge. Catheter intact. Bandaid applied. --00:40 Coni Gradner. Locked/Released at 06/26/2016 0:51 by Coni Gardner,
--- NOTE | 2016-06-27 12:14 | ED MED RECONCILIATION SUMMARY ---
Patient: MARY WILLARD Medication Reconciliation Report [facility] VisitID: [id number] [address] [place] [address] 45y, F Registration Date/Time: 06/25/2016 Weight: 83.9 kg Height/Length: 66 in. BMI: 29.9 ALLERGIES: D.H.E. 45, Doxycycline, Erythromycin, Penicillin, Phenergan, Reglan The patient's Home Medications are listed below: CONTINUE TAKING THE FOLLOWING MEDICATIONS: BuPROPion HCl Oral 150 mg, 2x a day Ibuprofen Oral Montelukast Sodium Oral 10 mg, daily Prevacid Oral, daily Sertraline HCl Oral 200mg, daily Strattera Oral 80mg, daily TiZANidine HCl Oral 4 mg, daily Tylenol Oral The source(s) of the original Home Medication information: Not obtained. The following Medications were given to the patient in the Emergency Department: Dilaudid [IVP] IVP 1 mg, administered: 06/25/2016 7:27:00 PM Benadryl [IVP] IVP 25 mg, administered: 06/25/2016 7:27:00 PM IV NS IV Fluids bolus 0, then 1000 mL/hr, administered: 06/25/2016 7:28:00 PM Decadron [IVP] IVP 10 mg, administered: 06/25/2016 7:28:00 PM Zofran [IVP] IVP 4 mg, administered: 06/25/2016 7:28:00 PM Toradol [IVP] IVP 30 mg, administered: 06/25/2016 9:04:00 PM Dilaudid [IVP] IVP 1 mg, administered: 06/25/2016 9:05:00 PM The following Medications were prescribed to the patient: None.
--- NOTE | 2016-06-27 12:14 | ED DISCHARGE INSTRUCTIONS ---
Patient: MARY WILLARD General Instructions [facility] VisitID: [id number] [address] [place] [address] 45y, F Registration Date/Time: 06/25/2016 06/25/2016 21:05 BP: 142/88. HR: 94. RR: 16. O2 saturation: 97%. 06/25/2016 20:03 BP: 127/70. HR: 89. RR: 20. O2 saturation: 100%. Pain level now: 07/29. 06/25/2016 18:41 BP: 139/90. HR: 102. RR: 16. O2 saturation: 98%. Temp: 98.2 F. Acute headache (left temporal). Blood pressure normal. Oxygen saturation normal. INSTRUCTIONS Warnings: SEDATIVE MEDICATION: You were given sedative medication during your visit. Do not drive or operate dangerous machinery. GENERAL WARNINGS: Return or contact your physician immediately if your condition worsens or changes unexpectedly, if not improving as expected, or if other problems arise. SPECIFICALLY, return if you develop fever, vomiting, numbness, weakness, difficulty thinking, visual disturbances, fainting or extreme fatigue. Your Current Medications: CONTINUE TAKING THE FOLLOWING MEDICATIONS: BuPROPion HCl Oral : 150 mg 2x a day. Ibuprofen Oral : prn. Montelukast Sodium Oral : 10 mg daily. Prevacid Oral : daily. Sertraline HCl Oral : 200mg daily. Strattera Oral : 80mg daily. TiZANidine HCl Oral : 4 mg daily. Tylenol Oral : prn. Follow-up: Return to the emergency department as needed. Follow up with your doctor in three days. Reason for referral: recheck today's concerns. Summary of care provided to patient via paper. Screening today revealed the patient's blood pressure to be in the normal range. The patient should follow up with a primary care provider for blood pressure management. Understanding of the discharge instructions verbalized by patient. ADDITIONAL INFORMATION Headache [Unspecified] The cause of your headache today is not clear, but it does not appear to be the sign of any serious illness. Under stress, some people tense the muscles of their shoulder, neck and scalp without knowing it. If this condition lasts long enough, a TENSION HEADACHE can occur. A MIGRAINE HEADACHE is caused by changes in blood flow to the brain. A migraine attack may be triggered by emotional stress, hormone changes during the menstrual cycle, oral contraceptives, alcohol use, certain foods containing tyramine, eye strain, weather changes, missing meals, lack of sleep or oversleeping. Other causes of headache include a viral illness with high fever, head injury with concussion, sinus, ear or throat infection, dental pain and TMJ (jaw joint) pain. More serious but less common causes of headache include stroke, brain hemorrhage, brain tumor, meningitis and encephalitis. Home Care: If you were given pain medicine for this headache, do not drive yourself home. Arrange for a ride, instead. When you get home, try to sleep. You should feel much better when you wake up. Apply heat to the back of your neck to relieve neck muscle spasm. Migraine headaches may respond best to an ice pack on the forehead or at the base of the skull. If you are having nausea or vomiting, follow a light diet until your headache is relieved. If you have a migraine type headache, use sunglasses when in the daylight or around bright indoor lighting until symptoms improve. Bright glaring light can worsen this kind of headache. Follow Up with your doctor if the headache is not better within the next 24 hours. If you have frequent headaches you should discuss a treatment plan with your primary care doctor. By being aware of the earliest signs of headache, and starting treatment right away, you may be able to stop the pain yourself. Get Prompt Medical Attention if any of the following occur: Worsening of your head pain or no improvement within 24 hours Repeated vomiting (unable to keep liquids down) Fever of 100.4F (38C) or higher, or as directed by your healthcare provider Stiff neck Extreme drowsiness, confusion or fainting Dizziness, vertigo (dizziness with spinning sensation) Weakness of an arm or leg or one side of the face Difficulty with speech or vision You have been given the following additional information: Headache, Unspecified (Electronically signed by Hugo Dubose Dr. 06/27/2016 12:14)
--- NOTE | 2016-06-27 12:14 | ED MED RECONCILIATION SUMMARY ---
Patient: MARY WILLARD Medication Reconciliation Report [facility] VisitID: [id number] [address] [place] [address] 45y, F Registration Date/Time: 06/25/2016 Weight: 83.9 kg Height/Length: 66 in. BMI: 29.9 ALLERGIES: D.H.E. 45, Doxycycline, Erythromycin, Penicillin, Phenergan, Reglan The patient's Home Medications are listed below: CONTINUE TAKING THE FOLLOWING MEDICATIONS: BuPROPion HCl Oral 150 mg, 2x a day Ibuprofen Oral Montelukast Sodium Oral 10 mg, daily Prevacid Oral, daily Sertraline HCl Oral 200mg, daily Strattera Oral 80mg, daily TiZANidine HCl Oral 4 mg, daily Tylenol Oral The source(s) of the original Home Medication information: Not obtained. The following Medications were given to the patient in the Emergency Department: Dilaudid [IVP] IVP 1 mg, administered: 06/25/2016 7:27:00 PM Benadryl [IVP] IVP 25 mg, administered: 06/25/2016 7:27:00 PM IV NS IV Fluids bolus 0, then 1000 mL/hr, administered: 06/25/2016 7:28:00 PM Decadron [IVP] IVP 10 mg, administered: 06/25/2016 7:28:00 PM Zofran [IVP] IVP 4 mg, administered: 06/25/2016 7:28:00 PM Toradol [IVP] IVP 30 mg, administered: 06/25/2016 9:04:00 PM Dilaudid [IVP] IVP 1 mg, administered: 06/25/2016 9:05:00 PM The following Medications were prescribed to the patient: None.
--- NOTE | 2016-06-27 12:14 | ED MAR SUMMARY ---
..... Medication Administration Record [facility] [address] [place] [address] Patient: MARY WILLARD Visit ID: [id number] 45y, F Weight: 83.9 kg Height/Length: 66 in BMI: 29.9 ALLERGIES: D.H.E. 45, Doxycycline, Erythromycin, Penicillin, Phenergan, Reglan Given 06/25/2016 Coni Gardner, Medication Administered: DILAUDID [IVP] (HYDROMORPHONE HCL PF), Dose: 1 mg IVP over 1 minute(s), Site: #1 right wrist. Medication Ordered: Dilaudid IV 1 mg (HIGH ALERT MEDICATION, NOW). Given 06/25/2016 Coni Gardner, Medication Administered: BENADRYL [IVP] (DIPHENHYDRAMINE HCL), Dose: 25 mg IVP over 2 minute(s), Site: #1 right wrist. Medication Ordered: Benadryl IV 25 mg (NOW). Given 06/25/2016 Coni Gardner, Medication Administered: ZOFRAN [IVP] (ONDANSETRON HCL), Dose: 4 mg IVP over 2 minute(s), Site: #1 right wrist. Medication Ordered: Zofran IV 4 mg (NOW). Given 06/25/2016 Coni Gardner, Medication Administered: DECADRON [IVP], Dose: 10 mg IVP over 2 minute(s), Site: #1 right wrist. Medication Ordered: Decadron IV 10 mg (NOW). Start 19:06/25/2016 Coni Gardner,, Stop 20:30 06/25/2016 Coni Gardner, Medication Administered: IV NS (SALINE), Dose: IV Fluids over 1 hour(s), Rate: 1000 mL/hr, Dispensed: 1000 mL bag, Site: #1 right wrist. Medication Ordered: IV NS : initial bolus 1000 mL (1000 mL/hr), then none - for X1 (NOW). Given 21:04 06/25/2016 Grant Solorio R.N. Medication Administered: TORADOL [IVP], Dose: 30 mg IVP over 2 minute(s), Site: #1 right wrist. Medication Ordered: Toradol IV 30 mg (NOW). Given 21:05 06/25/2016 Grant Solorio R.N. Medication Administered: DILAUDID [IVP] (HYDROMORPHONE HCL PF), Dose: 1 mg IVP over 2 minute(s), Site: #1 right wrist. Medication Ordered: Dilaudid IV 1 mg (HIGH ALERT MEDICATION, NOW).
--- NOTE | 2016-06-27 12:14 | ED MAR SUMMARY ---
..... Medication Administration Record [facility] [address] [place] [address] Patient: MARY WILLARD Visit ID: [id number] 45y, F Weight: 83.9 kg Height/Length: 66 in BMI: 29.9 ALLERGIES: D.H.E. 45, Doxycycline, Erythromycin, Penicillin, Phenergan, Reglan Given 06/25/2016 Coni Gardner, Medication Administered: DILAUDID [IVP] (HYDROMORPHONE HCL PF), Dose: 1 mg IVP over 1 minute(s), Site: #1 right wrist. Medication Ordered: Dilaudid IV 1 mg (HIGH ALERT MEDICATION, NOW). Given 06/25/2016 Coni Gardner, Medication Administered: BENADRYL [IVP] (DIPHENHYDRAMINE HCL), Dose: 25 mg IVP over 2 minute(s), Site: #1 right wrist. Medication Ordered: Benadryl IV 25 mg (NOW). Given 06/25/2016 Coni Gardner, Medication Administered: ZOFRAN [IVP] (ONDANSETRON HCL), Dose: 4 mg IVP over 2 minute(s), Site: #1 right wrist. Medication Ordered: Zofran IV 4 mg (NOW). Given 06/25/2016 Coni Gardner, Medication Administered: DECADRON [IVP], Dose: 10 mg IVP over 2 minute(s), Site: #1 right wrist. Medication Ordered: Decadron IV 10 mg (NOW). Start 19:06/25/2016 Coni Gardner,, Stop 20:30 06/25/2016 Coni Gardner, Medication Administered: IV NS (SALINE), Dose: IV Fluids over 1 hour(s), Rate: 1000 mL/hr, Dispensed: 1000 mL bag, Site: #1 right wrist. Medication Ordered: IV NS : initial bolus 1000 mL (1000 mL/hr), then none - for X1 (NOW). Given 21:04 06/25/2016 Grant Solorio R.N. Medication Administered: TORADOL [IVP], Dose: 30 mg IVP over 2 minute(s), Site: #1 right wrist. Medication Ordered: Toradol IV 30 mg (NOW). Given 21:05 06/25/2016 Grant Solorio R.N. Medication Administered: DILAUDID [IVP] (HYDROMORPHONE HCL PF), Dose: 1 mg IVP over 2 minute(s), Site: #1 right wrist. Medication Ordered: Dilaudid IV 1 mg (HIGH ALERT MEDICATION, NOW).
== END 2016-06-25 21:30 | disposition home or self-care (01) ==
LOC: ED SRH 18:30
DX: R51 Headache (principal); Z79.899 Other long term (current) drug therapy; Z88.0 Allergy status to penicillin; Z88.1 Allergy status to other antibiotic agents; Z88.8 Allergy status to other drugs, medicaments and biological substances